=== PATIENT | male | born 1995 ===

== ENCOUNTER 2016-11-20 04:28 | Emergency (ER) | payer OTHER ==
[~2016-11-20] VITALS: Ht 177.8 cm; Wt 59.0 kg
[~2016-11-20 04:28] MED LIST: MOTRIN 600 MG600 MG PO; TAMIFLU 75MG75 MG PO; ZOFRAN4 M1 SL
[2016-11-20 04:48] VITALS: BP 108/62
--- NOTE | 2016-11-20 04:57 | ED INFLUENZA/URI COMPLAINT ---
History of Present Illness General Chief Complaint: General Adult Stated Complaint: VOMITING, FEVER, HEADACHE Source: patient, family, old records Exam Limitations: no limitations Vital Signs & Intake/Output Vital Signs & Intake/Output Vital Signs Date Time Temp Pulse Resp B/P Pulse O2 O2 Flow FiO2 Ox Delivery Rate 11/20 0505 Room Air 11/20 0448 99.5 96 20 108/62 99 Room Air Allergies Coded Allergies: erythromycin base (Severe, ANAPYLAXIS 12/13/15) Reconcile Medications Ibuprofen (Motrin 600 MG Tab) 600 MG TAB 1 TAB PO Q6P PRN PAIN Ondansetron (Zofran Odt) 4 MG ODT 1 ODT SL Q6P PRN NAUSEA Oseltamivir Phosphate (Tamiflu 75MG) 75 MG CAP 1 CAP PO BID flu Triage Note: PT TO TRIAGE C/O NAUSEA, VOMITING, FEVER, AND HEADACHE. Triage Nurses Notes Reviewed? yes Onset: yesterday Duration: day(s):, constant, continues in ED Timing: recent history Severity: moderate Prior Episodes/Possible Cause: illness exposure No Modifying Factors: none Associated Symptoms: fever/chills, headache, muscle aches HPI: 1 day prior to admission patient complains of decreased appetite frequent loose watery stool then developed nausea vomiting generalized headache with fever chills. He denies chest pain cough shortness of breath dysuria rash bleeding. Past History Travel History Traveled to [place] past 21 day No Medical History Any Pertinent Medical History? 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 No Review of Systems Review of Systems Constitutional: Reports: see HPI, chills, fever, malaise. EENTM: Reports: no symptoms. Respiratory: Reports: no symptoms. Cardiovascular: Reports: no symptoms. GI: Reports: see HPI, diarrhea, nausea, vomiting. Genitourinary: Reports: no symptoms. Musculoskeletal: Reports: no symptoms. Skin: Reports: no symptoms. Neurological/Psychological: Reports: no symptoms. Hematologic/Endocrine: Reports: no symptoms. Immunologic/Allergic: Reports: no symptoms. All Other Systems: Reviewed and Negative Physical Exam Physical Exam General Appearance: well developed/nourished, alert, awake, anxious, moderate distress, thin Head: atraumatic, normal appearance Eyes: Bilateral: normal appearance, PERRL, EOMI. Ears, Nose, Throat: normal ENT inspection, dry mucous membranes Neck: normal inspection, supple, full range of motion, no midline tenderness Respiratory: normal breath sounds, chest non-tender, no respiratory distress, quiet respiration, lungs clear Cardiovascular: regular rate/rhythm, normal peripheral pulses, norml femoral pulses equa Peripheral Pulses: 4+ carotid (R), 4+ carotid (L), 2+ radial (R), 2+ radial (L) Gastrointestinal: normal bowel sounds, soft, non-tender, no organomegaly Back: normal inspection, normal range of motion Extremities: normal inspection, normal capillary refill, normal range of motion, no edema Neurologic/Psych: no motor/sensory deficits, awake, alert, oriented x 3, normal gait, normal mood/affect, yarn spinner II-XII nml as tested Reflexes: 2+: bicep (R), bicep (L). Skin: intact, normal color, warm/dry Lymphatic: no anterior cervical gail Core Measures Severe Sepsis Present: No Septic Shock Present: No Progress Differential Diagnosis: influenza, otitis, pneumonia Plan of Care: Orders Procedure Date/time Status RAPID VIRAL INFLUENZA A 11/20 441 Complete Current Medications Sig/Bipin Start time Last Medication Dose Stop Time Status Admin Ibuprofen 600 MG ONCE ONE 11/20 544 AC (Motrin) 11/20 545 Oseltamivir Phosphate 75 MG ONCE ONE 11/20 544 AC (Tamiflu 75MG) 11/20 545 Initial ED EKG: none Departure Departure Time of Disposition: 541 Disposition: HOME OR SELF CARE Condition: Stable Clinical Impression Primary Impression: Influenza B Referrals: SO QUEEN MD (PCP/Family) Departure Forms: Customer Survey General Discharge Information Prescriptions: Current Visit Scripts Oseltamivir Phosphate (Tamiflu) 1 CAP PO BID #10 CAP Ibuprofen 1 TAB PO Q6PRN PRN pain, fever #50 TAB with food Ondansetron (Zofran Odt) 1 TAB SL TID PRN nausea #15 TAB
[2016-11-20] MEDS ORDERED: ZOFRAN ODT4 M1 SL (05:43)
[2016-11-20] MEDS ORDERED: TAMIFLU75 M1 PO (05:43)
[2016-11-20] MEDS ORDERED: IBUPROFEN600 M1 PO (05:43)
[2016-11-21] MEDS ORDERED: [UNRECOGNIZED DRUG - OTHER] PR (11:04)
[2016-11-21] MEDS ORDERED: POLYTRIM EYE DR10 ML OPH (11:15)
== END 2016-11-20 05:50 ==
LOC: ERH 04:28
DX: J10.1 Influenza due to other identified influenza virus with other respiratory manifestations (principal)
CPT/HCPCS: 87804; 87804-59; J3101

== ENCOUNTER 2016-11-20 19:35 | Emergency (ER) | payer OTHER ==
[~2016-11-20] VITALS: Ht 167.6 cm; Wt 54.4 kg
[~2016-11-20 19:35] MED LIST changes: +IBUPROFEN600 M1 PO; +TAMIFLU75 M1 PO; +ZOFRAN ODT4 M1 SL
--- NOTE | 2016-11-20 20:01 | ED GI/GU/ABDOMINAL COMPLAINT ---
History of Present Illness General Chief Complaint: Nausea, Vomiting, Diarrhea Stated Complaint: PT TO ER +VOMITING WAS HERE THIS AM FOR FLU Source: patient Exam Limitations: no limitations Vital Signs & Intake/Output Vital Signs & Intake/Output Vital Signs Date Time Temp Pulse Resp B/P Pulse O2 O2 Flow FiO2 Ox Delivery Rate 11/200 99.7 80 18 109/63 99 Room Air 11/20 2119 100.3 11/20 2119 100.3 84 18 99/54 99 Room Air 11/20 2018 Room Air 11/20 1951 103.0 90 20 122/70 98 Room Air ED Intake and Output 11/21 0000 11/20 1200 Intake Total 1000 Output Total Balance 1000 Intake, IV 1000 Patient 120 lb Weight Allergies Coded Allergies: erythromycin base (Severe, ANAPYLAXIS - PER PT ONLY GETS RASHES 11/20/16) shellfish derived (ANAPHYLAXIS 11/20/16) shrimp (ANAPHYLAXIS 11/20/16) Reconcile Medications Ibuprofen 600 MG TABLET 1 TAB PO Q6PRN PRN pain, fever with food Ondansetron (Zofran Odt) 4 MG TAB.RAPDIS 1 TAB SL TID PRN nausea Oseltamivir Phosphate (Tamiflu) 75 MG CAPSULE 1 CAP PO BID influenza Triage Note: PT RETURNS TO ED WITH PARENTS C/O +N/V FEVER. DX WITH FLU HERE THIS AM. LAST ATE YESTERDAY AT NOON. TEMP 103 IN TRIAGE. CAN'T KEEP MEDS DOWN Triage Nurses Notes Reviewed? yes Duration: day(s):, waxing and waning Timing: recent history Quality/Severity: cramping Location: generalized abdomen Radiation: no radiation Activities at Onset: "I have the flu." Prior Abdominal Problems: none Modifying Factors: Worsens With: vomiting. Associated Symptoms: abdominal pain, nausea/vomiting HPI: 21-year-old gentleman, diagnosed with influenza this morning, presents with vomiting, decreased oral intake, and fatigue. He states, "I have been able to hold anything down all day." He notes that he is febrile, has body aches. He states he was unable to keep down his Tamiflu. He denies significant cough phlegm diarrhea shortness of breath chest pain. He is otherwise well. Past History Travel History Traveled to [place] past 21 day No Medical History Any Pertinent Medical History? 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 No Review of Systems Review of Systems Constitutional: Reports: no symptoms. EENTM: Reports: no symptoms. Respiratory: Reports: no symptoms. Cardiovascular: Reports: no symptoms. GI: Reports: no symptoms. Genitourinary: Reports: no symptoms. Musculoskeletal: Reports: no symptoms. Skin: Reports: no symptoms. Neurological/Psychological: Reports: no symptoms. Hematologic/Endocrine: Reports: no symptoms. Immunologic/Allergic: Reports: no symptoms. All Other Systems: Reviewed and Negative Physical Exam Physical Exam General Appearance: well developed/nourished, mild distress Head: atraumatic, normal appearance Eyes: Bilateral: normal appearance. Ears, Nose, Throat, Mouth: hearing grossly normal, slightly dry mucosa Neck: normal inspection, supple, full range of motion Respiratory: normal breath sounds, chest non-tender, no respiratory distress, quiet respiration, lungs clear Cardiovascular: regular rate/rhythm Gastrointestinal: normal bowel sounds, soft, non-tender, no organomegaly Back: normal inspection Extremities: normal range of motion Neurologic/Psych: no motor/sensory deficits, awake, alert, oriented x 3 Skin: intact, normal color, warm/dry Core Measures ACS in differential dx? No Severe Sepsis Present: No Septic Shock Present: No Progress Differential Diagnosis: viral syndrome versus other Plan of Care: Orders Procedure Date/time Status LIPASE 11/20 2001 Complete HEPATIC FUNCTION PANEL 11/20 2001 Complete CBC WITHOUT DIFFERENTIAL 11/20 2001 Complete BASIC METABOLIC PANEL 11/20 2001 Complete AMYLASE 11/20 2001 Complete Laboratory Tests 11/20/16 2031: Anion Gap 11, Estimated GFR > 60, BUN/Creatinine Ratio 10.9, Glucose 97, Calcium 9.5, Total Bilirubin 0.9, Direct Bilirubin 0.4, AST 23, ALT 33, Alkaline Phosphatase 56, Total Protein 8.1, Albumin 4.7, Amylase 71, Lipase 65, CBC w Diff NO MAN DIFF REQ, RBC 5.70, MCV 86.3, MCH 29.6, RDW 12.8, MPV 8.2, Gran % 79.4 H, Lymphocytes % 13.6 L, Monocytes % 6.6, Eosinophils % 0.1, Basophils % 0.3, Absolute Granulocytes 6.1, Absolute Lymphocytes 1.0 L, Absolute Monocytes 0.5, Absolute Eosinophils 0, Absolute Basophils 0, PUBS MCHC 34.3 Diagnostic Imaging: Viewed by Me: Radiology Read. Discussed w/RAD: Radiology Read. CXR Impression: no acute abnormality, no infiltrates, normal size heart, normal mediastinum Initial ED EKG: none Comments: PATIENT: LIU GRAHAM PRESENT AGE: 21 PATIENT ACCOUNT NO: [id number] : 94 LOCATION: [facility] ORDERING PHYSICIAN: LUIZA HURTADO MD SERVICE DATE: 11/20/16 EXAM TYPE: RAD - XRY-CHEST XRAY, PA AND LATERAL EXAMINATION: XR CHEST CLINICAL INFORMATION: Fever. COMPARISON: None TECHNIQUE: 2 views of the chest were obtained. FINDINGS: No significant abnormality is noted involving the heart, lungs, mediastinum, bony thorax or soft tissues. IMPRESSION: Unremarkable examination. DICTATED BY: CAPRICE WATSON MD DATE/TIME DICTATED:11/20/162234 MEDICAL ANTHROPOLOGY DIRECTOR:CLEMENCIA DATE/TIME TRANSCRIBED:11/20/162234 CONFIDENTIAL, DO NOT COPY WITHOUT APPROPRIATE AUTHORIZATION. <Electronically signed in Other Vendor System> SIGNED BY: CAPRICE WATSON MD 11/20/162238 Departure Departure Disposition: HOME OR SELF CARE Condition: Stable Clinical Impression Primary Impression: Influenza Secondary Impressions: Nausea and vomiting Referrals: SO QUEEN MD (PCP/Family) Departure Forms: Customer Survey General Discharge Information Comments at discharge, he is tolerating fluids, doing well, feeling better... pt has zofran and tamiflu at home. I encouraged close follow up.
[2016-11-20 20:59] LABS: ABSOLUTE BASOPHIL COUNT 0 /CUMM (0.0-0.2); ABSOLUTE EOSINOPHIL COUNT 0 /CUMM (0.0-0.7); ABSOLUTE GRANULOCYTE CT 6.1 /CUMM (1.4-6.5); ABSOLUTE MONOCYTE COUNT 0.5 /CUMM (0.10-0.60); BASOPHIL % 0.3 % (0.0-2.0); EOSINOPHIL % 0.1 % (0-5); GRANULOCYTE % 79.4 % (42.2-75.2); HEMATOCRIT 49.2 % (42-52); MEAN CORPUSCULAR HGB 29.6 PG (27.0-31.0); MEAN CORPUSCULAR HGB CONC 34.3 G/DL (33.0-37.0); MEAN CORPUSCULAR VOLUME 86.3 FL (80.0-94.0); MEAN PLATELET VOLUME 8.2 FL (7.4-10.4); PLATELET COUNT 224 /CUMM (130-400); RBC DISTRIBUTION WIDTH 12.8 % (11.5-14.5); WHITE BLOOD CELL COUNT 7.7 /CUMM (4.8-10.8)
--- NOTE | 2016-11-20 22:39 | RADIOLOGY REPORT ---
EXAMINATION: XR CHEST CLINICAL INFORMATION: Fever. COMPARISON: None TECHNIQUE: 2 views of the chest were obtained. FINDINGS: No significant abnormality is noted involving the heart, lungs, mediastinum, bony thorax or soft tissues. IMPRESSION: Unremarkable examination.
[2016-11-20 23:30] VITALS: BP 109/63
[2016-11-21] MEDS ORDERED: [UNRECOGNIZED DRUG - OTHER] PR (11:04)
[2016-11-21] MEDS ORDERED: POLYTRIM EYE DR10 ML OPH (11:15)
== END 2016-11-20 23:31 ==
LOC: ERH 19:35
PROVIDERS: Pediatrics
DX: J11.1 Influenza due to unidentified influenza virus with other respiratory manifestations (principal); R10.84 Generalized abdominal pain
CPT/HCPCS: 96374; 96375; J0131; J1885; J2405

== ENCOUNTER 2016-11-21 08:35 | Emergency (ER) | payer OTHER ==
[~2016-11-21] VITALS: Ht 167.6 cm; Wt 54.4 kg
--- NOTE | 2016-11-21 09:08 | ED INFLUENZA/URI COMPLAINT ---
History of Present Illness General Chief Complaint: General Adult Stated Complaint: FLU Source: patient, family, old records Exam Limitations: no limitations Vital Signs & Intake/Output Vital Signs & Intake/Output Vital Signs Date Time Temp Pulse Resp B/P Pulse O2 O2 Flow FiO2 Ox Delivery Rate 11/21 1046 98.6 80 18 98/54 98 Room Air Room Air 11/21 0934 100.3 11/21 0839 100.3 80 20 106/74 100 Room Air Allergies Coded Allergies: erythromycin base (Severe, ANAPYLAXIS - PER PT ONLY GETS RASHES 11/20/16) shellfish derived (ANAPHYLAXIS 11/20/16) shrimp (ANAPHYLAXIS 11/20/16) Reconcile Medications Ibuprofen 600 MG TABLET 1 TAB PO Q6PRN PRN pain, fever with food Ondansetron (Zofran Odt) 4 MG TAB.RAPDIS 1 TAB SL TID PRN nausea Oseltamivir Phosphate (Tamiflu) 75 MG CAPSULE 1 CAP PO BID influenza Polytrim (Polytrim Eye Drops) 10,000 UNIT-1 MG/ML DROPS 1 GTT OPH Q6 conjunctivitis Prochlorperazine (Compro) 25 MG SUPP.RECT 1 DOSE MD Q12 PRN NAUSEA Triage Note: PT RETURNS TO ED WITH PARENTS FOR C/O CONTINUED FLU S/S. PT SEEN X 2 IN ED FOR THE SAME. STATES HE IS UNABLE TO KEEP MEDS DOWN. TEMP 100.3 IN TRIAGE, PT IN W/C FOR COMFORT. Triage Nurses Notes Reviewed? yes Onset: Abrupt Duration: day(s): (W) Timing: multiple episodes today Severity: severe No Modifying Factors: none Associated Symptoms: NAUSEA, VOMITING HPI: 21 year old male with symptoms since , diagnosed with the flu who presents to the ER for chief complaint of intractable nausea. This is his 3rd visit since yesterday. Reports 8 episodes of vomiting since discharge last night. [place] better initially after 3 L bolus yesterday. Complains of headaches. Feels very dehydrated. Past History Travel History Traveled to [place] past 21 day No Medical History Any Pertinent Medical History? 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 No Review of Systems Review of Systems Constitutional: Reports: chills, fever, malaise, weakness. EENTM: Reports: no symptoms. Respiratory: Reports: cough. Denies: short of breath, sputum production. Cardiovascular: Denies: chest pain. GI: Reports: nausea, vomiting. Denies: abdominal pain. Genitourinary: Reports: no symptoms. Musculoskeletal: Reports: no symptoms. Skin: Reports: no symptoms. Neurological/Psychological: Reports: no symptoms. Hematologic/Endocrine: Denies: bruising, bleeding, polyuria, polydipsia. Immunologic/Allergic: Denies: splenectomy. All Other Systems: Reviewed and Negative Physical Exam Physical Exam General Appearance: well developed/nourished, alert, awake, mild distress Head: atraumatic, normal appearance Eyes: Bilateral: normal appearance, PERRL, EOMI. Ears, Nose, Throat: normal ENT inspection, hearing grossly normal, Tympanic normal, pharynx normal Neck: normal inspection, supple, full range of motion Respiratory: normal breath sounds, chest non-tender, no respiratory distress Cardiovascular: regular rate/rhythm Peripheral Pulses: 2+ radial (R), 2+ radial (L) Gastrointestinal: normal bowel sounds, soft, non-tender Back: normal inspection, normal range of motion Extremities: normal inspection, normal capillary refill, normal range of motion, no edema Neurologic/Psych: no motor/sensory deficits, awake, alert, oriented x 3, normal gait, depressed affect Skin: intact, normal color, warm/dry Core Measures Severe Sepsis Present: No Septic Shock Present: No Progress Differential Diagnosis: influenza, dehydration, NICHOLE, INTRACTABLE VOMITING Plan of Care: Orders Procedure Date/time Status URINALYSIS 11/21 913 Complete Laboratory Tests 11/21/16 1016: Urine Color YEL, Urine Clarity CLEAR, Urine pH 6.0, Ur Specific [place] 1.010, Urine Protein NEG, Urine Ketones TRACE H, Urine Nitrite NEG, Urine Bilirubin NEG, Urine Urobilinogen 0.2, Ur Leukocyte Esterase NEG, Ur Microscopic EXAM NOT REQUIRED, Urine Hemoglobin NEG, Urine Glucose NEG FLUIDS, IV ZOFRAN, URINALYSIS ORDERED, IV TYLENOL ORDERED. REPEAT FLUID BOLUS ORDERED. PATIENT AMBULATORY TO THE BATHROOM TO URINATE WITHOUT DISTRESS. PATIENT REQUESTED 3RD LITER OF FLUIDS. WILL DISCHARGE AFTER LAST BOLUS. (HANS KEYES,VESTA) Initial ED EKG: none Departure Departure Time of Disposition: 1104 Disposition: HOME OR SELF CARE Condition: Stable Clinical Impression Primary Impression: Influenza Referrals: SO QUEEN MD (PCP/Family) Additional Instructions: Continue the Tamiflu and ibuprofen. Take the rectal suppository for nausea as directed. A prescription is at your pharmacy in [place]. Follow-up with your doctor in the office. Make sure you are drinking plenty of fluids. Departure Forms: Customer Survey General Discharge Information Prescriptions: Current Visit Scripts Prochlorperazine (Compro) 1 DOSE MD Q12 PRN NAUSEA #10 TAB Polytrim (Polytrim Eye Drops) 1 GTT OPH Q6 #10 ML
[2016-11-21 10:46] VITALS: BP 98/54
[2016-11-21] MEDS ORDERED: [UNRECOGNIZED DRUG - OTHER] PR (11:04)
[2016-11-21] MEDS ORDERED: POLYTRIM EYE DR10 ML OPH (11:15)
== END 2016-11-21 11:20 ==
LOC: ERH 08:35
DX: J11.1 Influenza due to unidentified influenza virus with other respiratory manifestations (principal)
CPT/HCPCS: 81003; 96361; 96374; J0131; J1885; J2405